=== PATIENT | female | born 1980 | race Caucasian/White ===

== ENCOUNTER → 2017-04-07 | Outpatient (CLI) | payer BC ==
[~2017-04-07] VITALS: Ht 165.1 cm; Wt 68.0 kg
[~2017-04-07] MED LIST: ALPRAZOLAM1 MG PO; LYRICA200 MG PO; METFORMIN HCL500 MG PO; METHADONE HCL 110 M1 PO; MOBIC15 MG PO; OMEGA-31000 M1 PO; TURMERIC500 M2 PO; TYLENOL EXTRA500 MG PO; VALIUM5 MG PO
--- NOTE | ~2017-04-07 | HPC ---
[facility] [place] [address] PAIN MANAGEMENT CONSULTATION Name: PEDERSONDANIELAMEENA Filippo Room #: REG [facility] Brandie.#: [id number] Admission: 04/07/17 Attend Phys: Clayton Calhoun DO Discharge: Date of : 80 Report #: [id number] THIS REPORT FOR: //name// CC: Dr. Tyrone Calhoun DATE OF SERVICE: 04/07/2017 REFERRING PHYSICIAN: Dr. Hansen at [facility]. CHIEF COMPLAINT: Bilateral breast pain. HISTORY OF PRESENT ILLNESS: As you know, the patient is a 36-year-old female who underwent elective bilateral mastectomies as the patient had BRCA positive findings. The patient's original surgery apparently went poorly. She relays information to us today that indicates that the tissue expanding devices were placed above the pectoralis muscle and she had complications with this operation and expansion. Apparently, these expanders were removed. She healed from the original surgery and sought Plastic Surgery treatment from another physician. The patient now has tissue expanders below the pectoralis muscle and has been having ongoing pain issues. This is not unusual to be seen in individuals with tissue expanders below pectoralis muscles. In fact, it is fairly typical finding. The symptoms that she describes appears to be related to tissue expansion issues involving not only previous scar tissue, but also the expansion of tissue underneath the pectoralis muscle, which is causing muscle tension and a possible tissue disruption in the area. She apparently had discussed this with her plastic surgeon who referred the patient to our clinic for "breast nerve blocks." The patient indicates today pain is constant, describes the pain as cramping, aching, pulling and stabbing; places current pain score 8/10, daily average at 8/10, worst pain has been is 10/10. The patient states that when she moves her arms or changes position, her pain is intense. She is currently taking methadone 10 mg twice a day and utilizing 2 different benzodiazepines and a nonsteroidal anti-inflammatory. Despite these medications, her pain remains elevated. She has been referred to our service to discuss the possibility of nerve blocks to assist in pain control. PAST MEDICAL HISTORY: Surgical complication secondary to radical mastectomies for BRCA positive findings. PAST SURGICAL HISTORY: 1. Loda teeth extraction. 2. Double mastectomy. 3. Mastectomy revision. 4. Tissue expanding surgery. [address] [address] PAIN MANAGEMENT CONSULTATION Name: SARAH PEDERSON Room #: REG [facility] [id number] Admission: 04/07/17 Attend Phys: Clayton Calhoun DO Discharge: Date of : 80 Report #: [id number] SOCIAL HISTORY: The patient denies tobacco, IV or illicit drug use. Admits to approximately 3 alcoholic beverages per week. She is not working. She has been out of the work force since October 2016. She is not receiving workmen's compensation. She does indicate she is in litigation in regards to her ongoing pain issues. She is accompanied by her significant other. REVIEW OF SYSTEMS: Positive for nocturia, painful menses, varicose veins, breast pain and chest wall pain. All other review of systems negative per 12-point review of systems other than those listed in history of present illness. Pain impact score 58/70 indicating severe interference of daily activities secondary to pain. ALLERGIES: PENICILLIN. CURRENT MEDICATIONS: Metformin 500 mg twice a day, turmeric 500 mg 4 times a day, extra strength Tylenol 4 times a day, meloxicam 15 mg once a day, omega-3 fish oil 1 tab twice a day, alprazolam 1 mg 3 times a week, methadone 10 mg twice a day and Valium 5 mg once a day. IMAGING DATA: No imaging available. PQRS: The patient has no history of osteoarthritis, rheumatoid arthritis. She has no fall risks. She has not fallen in the last 3 months. She is not on blood thinners. She has no history of hypertension. She has been on opioid therapy for greater than 6 weeks. She has received medications and is under contract with her surgeon. Functional assessment tool shows a pain level functional reduction of 58/70 indicating severe interference. PHYSICAL EXAMINATION: VITAL SIGNS: Blood pressure 110/76, pulse 65, respiratory rate 14 and unlabored. The patient 99% on room air. Height 5 feet 5 inches tall, weight 150 pounds and BMI calculated 25. GENERAL: Well-developed, well-nourished and well-hydrated 36-year-old female who appears stated age. She is placing current pain score at around 8/10. HEENT: Normocephalic and atraumatic. Pupils equal, round and reactive to light. Extraocular muscles are intact. Sclerae nonicteric without injection. NEUROLOGICAL: Cranial nerves 2 through 12 grossly intact. Speech is fluent. The patient deemed a good historian. LUNGS: Clear. No wheeze, rhonchi or rales. CARDIOVASCULAR: Regular. No appreciable gallop or rub. ABDOMEN: Soft, nontender and nondistended. EXTREMITIES: Show no clubbing, no cyanosis and no edema. MUSCULOSKELETAL: The patient has well-healed surgical scars over bilateral breasts. There is palpatory tenderness over the breast tissue itself. [facility] [address] [place] [address] PAIN MANAGEMENT CONSULTATION Name: SARAH PEDERSON Room #: REG [facility] Fernando#: [id number] Admission: 04/07/17 Attend Phys: Clayton Calhoun DO Discharge: Date of : 80 Report #: [id number] palpation causes intensification of pain directly over of tissue expanders. The tissue is very taut and tight and is very tender to palpation. ASSESSMENT: 1. Bilateral chest wall pain secondary to a tissue carbonation equipment tender placement and radical mastectomies. 2. Chronic intractable pain. PLAN: 1. Based on today's physical exam, the patient was provided the description the patient uses in regards to pain as well as location of symptoms like source of the patient's pain is the tissue expanders and their effect upon the pectoral muscles and the overlying tissue. It appears that the patient is experiencing increasing pain when the expanders were increased. We discussed with the patient that the requested "nerve blocks for bilateral breast pain" do not currently provide any long-term benefit. I discussed with the patient that the nerve block itself would last approximately one day maximum and would provide no long-term efficacious therapy. We have offered the patient the possibility of undergoing these blocks but have advised her, will only gain minimal improvement in symptoms for a transient amount of time. The patient does wish to potentially look towards this treatment option and has requested that we begin the authorization process. I did advise the patient that this block may be classified as an experimental as there is no direct innervation to the breast tissue. It is a complex of multiple dermatomal distributions. There is no one single nerve root that innervates the breast itself. We will begin the process of obtaining a possible block understanding that the efficacy will be transient. 2. The patient and I discussed that her symptoms increase with each tissue expansion. This is not unusual in fact it is a relatively typical finding. It is not unusual to see a tissue disruption causing increased pain. I did advise the patient that a slower process of expansion may improve pain and certainly, it would prolong the tissue expansion process but would certainly have a reduction in the stretch receptor activity the patient is experiencing from a nociceptive standpoint. The patient is going to discuss this with her plastic surgeon. We did discuss that the tissue expanders itself or not only causing increased pressure sensation but are also causing disruption of tissue, the combination of which is what she is experiencing from a pain standpoint. Treatment for that unfortunately is tincture of time and mild use of opioid medications for which the patient is currently taking. The addition of neuropathic medications may be helpful for stretch receptor activity and will make adjustments in that therapy today. 3. The patient was given samples of Lyrica. She will begin at 75 mg dose, this will help with neuropathic symptoms related to the tissue expansion and the peripheral nerve damage done from the radical mastectomies. We will start the patient on the 75 mg dose at night, continue for 7 nights and then increase to 150 mg at night and this will continue for 7 nights and then increased to 1 tablet in the morning 75 mg and 150 at night for 7 nights and then possibly [address] [address] PAIN MANAGEMENT CONSULTATION Name: SARAH PEDERSON Room #: REG Braydon King#: [id number] Admission: 04/07/17 Attend Phys: Clayton Calhoun DO Discharge: Date of : 80 Report #: [id number] mg b.i.d. I have given the patient samples of the medication 75 mg to begin this titration. We have discussed with the patient to watch for side effects of somnolence, decrease in mental acuity, disorientation, confusion and mental slowing. If she notes side effects, reduce the dose prior to side effects, continue for another 7 days and then reattempt escalation assuming no improvement in symptoms. 4. We will contact the Plastic Surgery team tomorrow to discuss and clarify the request of the Plastic Surgery team in regards to the treatment they had desire to be performed. Once we have a confirmation of this treatment, we will pass this along to the patient's third democrat payer in hopes of getting approval. 5. I did discuss with the patient that the symptoms that she is experiencing will subside once the tissue expanding has been completed. It appears that this is to occur within the next month to 2 months. It may be most effective to continue the current medications the patient is on and with the addition of the Lyrica and look for resolution once the tissue expanding process has been completed and the breast implants have been placed permanently. The patient will discuss this with her plastic surgeon. 6. We wish to thank the surgery team at [facility] for the opportunity to see the patient in consultation. We will be contacting by phone tomorrow to confirm the potential requested interventional treatment and to discuss the case further with their service. Again, we wish to thank them for the opportunity this patient in consultation. <ELECTRONICALLY SIGNED> By: Clayton Calhoun DO 04/08/17 1131 [id number] Clayton Calhoun DO /nt
[2017-04-07 13:01] VITALS: BP 110/76
== END ==
LOC: PAIN 06:50
DX: G89.29 Other chronic pain (principal); R07.89 Other chest pain; Z90.13 Acquired absence of bilateral breasts and nipples; Z72.89 Other problems related to lifestyle

== ENCOUNTER → 2017-04-21 | Outpatient (CLI) | payer BC ==
[~2017-04-21] VITALS: Ht 165.1 cm; Wt 70.7 kg
--- NOTE | ~2017-04-21 | HPC ---
[facility] [place] [address] PAIN MANAGEMENT CONSULTATION Name: SARAH PEDERSON Room #: REG [facility] Brandie.#: [id number] Admission: 04/21/17 Attend Phys: Clayton Calhoun DO Discharge: Date of : 80 Report #: [id number] THIS REPORT FOR: //name// CC: Dr. Tyrone Calhoun REFERRING PHYSICIAN: Dr. Tyrone Hansen Plastic Surgery. CHIEF COMPLAINT: Bilateral chest wall pain and breast pain. HISTORY OF PRESENT ILLNESS: As you know, the patient is a 36-year-old female who underwent elective bilateral mastectomies secondary to BRCA positive findings. Her original surgery apparently went poorly, per the patient, there were complications and tissue expanders had to be removed due to infections. The patient then sought further evaluation and new surgeon was consulted. The patient underwent tissue expansion inserts under the pectoralis muscles of each of the breast areas. There have been rapid increases in the lamp shade maker volumes themselves and according to notes we have received, 60 mL per side in January, a reduced dose, but fairly high dose of expansion material was utilized in March. The patient continues to report pain for which she takes methadone twice a day. She was referred to our clinic for requested "nerve blocks." We saw the patient in consultation per request of the Plastic Surgery team on 04/07/2017. We requested to provide bilateral breast blocks. We reviewed the patient's case and there is no type of procedure from an interventional standpoint, which would give a tissue block in the area. We advised trying neuropathic pain medication and started the patient on Lyrica. She is now at 150 mg twice a day and notes improvement in symptoms. Despite this change in medication therapy, she is reporting pain score today of upwards of 8-9/10, but just recently had increases in her expansion devices. ALLERGIES: PENICILLIN. CURRENT MEDICATIONS: Pregabalin, diazepam, methadone, alprazolam, omega-3 fish oil, Meloxicam, acetaminophen, turmeric and metformin. SOCIAL HISTORY: The patient denies tobacco, IV or illicit drug use. Admits to 3 alcoholic beverages per week. She is not working. She has been out of workforce since October 2016, unaccompanied today. IMAGING: No new imaging available. PQRS: The patient has no osteoarthritis, no rheumatoid arthritis. Pain intensity is 8/9. She is not a fall risk, has not had a fall in the past 3 months. She is not on blood thinners. She is not hypertensive. She is on opioids with another physician. She does have a risk assessment tool provided by Dr. Nayak. We do not have this available to us. Functional [place] [address] PAIN MANAGEMENT CONSULTATION Name: SARAH PEDERSON Room #: REG [facility] Fernando#: [id number] Admission: 04/21/17 Attend Phys: Clayton Calhoun DO Discharge: Date of : 80 Report #: [id number] 54/70. PHYSICAL EXAMINATION: VITAL SIGNS: Blood pressure 103/58, pulse 89, respiratory rate 14, unlabored. The patient is 97% on room air. Height 5 feet 5 inches tall, weight 155.8 pounds, BMI calculated at 25.9. GENERAL: Well-developed, well-nourished, well-hydrated 36-year-old female, appearing stated age. She is placing pain score 8-9/10. HEENT: Normocephalic, atraumatic. Pupils equal, round, reactive to light. Extraocular muscles are intact. Sclerae nonicteric without injection. NEUROLOGIC: Cranial nerves 2-12 grossly intact. Speech is fluent. The patient deemed a fair historian. EXTREMITIES: Show no clubbing, no cyanosis, no edema. MUSCULOSKELETAL: The patient has well-healed surgical scars over the bilateral breasts. There is palpatory tenderness over the breast tissue itself. Deep palpation causes intensification of pain. There is a fairly taut tissue due to tissue expanders. ASSESSMENT: 1. Bilateral chest wall pain secondary to a tissue lamp shade maker placement. 2. Rapid tissue expansion for radical mastectomies. 3. Chronic intractable pain. PLAN: 1. The patient has returned today in followup visit indicating some improvement with Lyrica therapy. We initiated the Lyrica due to some of the descriptions the patient was using in regards to pain, which were burning and numbness in sensation. The Lyrica has been beneficial. She is on 150 mg twice a day. We would recommend increasing the Lyrica to 200 mg twice a day to try to gain better efficacy. The patient is denying side effects to Lyrica at this time. Recommend this increase. 2. The patient and I had a very long discussion today about the rapidity of which she is increasing the tissue expanders, these are going to continue to cause pain and given that this is an elective procedure, I would recommend a slower more gentle expansion process. This would reduce the patient's overall pain. She is relying significantly on opioids with a high addiction potential and an extremely difficult medication to get off once the pain generator is discontinued. This is a 36-year-old patient on methadone at 20 mg to 30 mg dosing a day. Equivalency between 80 and 120 morphine equivalents a day depending on a calculation of the conversion of methadone to morphine. Either of these calculations would indicate an excessively high dose of opioid in a 36-year-old female undergoing elective procedure. We have discussed with the patient to possibly contact her surgeon and determine if there are ways to reduce the expansion process to reduce the stress on the chest wall and pectoralis muscles. It would prolong the expansion process, but I believe this would be much more appropriate treatment than to continue the use of high dose [facility] [address] [place] [address] PAIN MANAGEMENT CONSULTATION Name: SARAH PEDERSON Room #: REG [facility]MILEY King#: [id number] Admission: 04/21/17 Attend Phys: Clayton Calhoun DO Discharge: Date of : 80 Report #: [id number] opioids in this patient's case. I will defer to the Plastic Surgery team to discuss this with the patient. 3. The patient is on methadone therapy being provided by Dr. Nayak. I have advised the patient that once she reaches the expansion level that she is attempting to reach and the plan is to move towards surgery, that she should wean off the methadone therapy. Off the methadone for at least 2-3 weeks prior to her breast implantations. It will be very difficult for the patient to gain much in the way of control of postoperative pain if she remains on such high dose opioid prior to procedure. I would recommend that she reduce her dose by 5 mg every week until which time, she is off the methadone entirely, then maintain a 3-week timeframe without opioid medications to undergo surgery. I understand this is a protracted timeframe, but given the fact the patient has a high potential for tolerance to methadone therapy, it will be very difficult to control postoperative pain unless she is off this medication. I strongly recommend reducing by 5 mg every week to come off the medication entirely with a 3-week holiday from drugs prior to surgery. 4. Once the patient completes her final surgery, we would recommend that she be provided only a 3-7 day course of immediate release medication, whether this be hydrocodone or oxycodone, it is for the surgeon to decide. I would not recommend the patient be restarted on any chronic opioids after the surgery. Use of these medications have been shown by the World Health Organization to be effective only for postop pain and the patient should not be on long-term opioids after definitive surgical treatment has been provided. Recommend that the surgery team look to utilizing no greater than 1 week of hydrocodone, oxycodone post-prosthetic breast implantations. 5. We have provided the patient with samples of Lyrica today. Also, a prescription for 200 mg Lyrica dose. This increase will be recommended to control what neuropathic pain the patient continues to experience. She was given a prescription with two refills. She can continue the medication as directed. 6. We will be returning the patient's care to her surgeon and Dr. Nayak who is managing her opioid medications. We are hopeful the information above helps direct her care during this time of tissue expansion and her postoperative pain after a definitive prosthetic breast implantation. Again, we wish to thank you for the opportunity to see the patient in consultation. <ELECTRONICALLY SIGNED> By: Clayton Calhoun DO 04/22/17 0741 [id number] Clayton Calhoun DO /nt
[2017-04-21 11:23] VITALS: BP 103/58
== END ==
LOC: PAIN 07:03
DX: T81.89XA Other complications of procedures, not elsewhere classified, initial encounter (principal); Z53.9 Procedure and treatment not carried out, unspecified reason; R07.89 Other chest pain; G89.29 Other chronic pain